=== PATIENT | male | born 1950 | race Caucasian/White ===

== ENCOUNTER 2018-04-13 09:15 | Emergency (ER) | payer BC, OTHER ==
[~2018-04-13] VITALS: Ht 170.2 cm; Wt 103.0 kg
[~2018-04-13 09:15] MED LIST: ATEN50TA41 PO; CHLO25CA9 PO; WARF5TAB PO
[2018-04-13 09:32] VITALS: BP 130/93
--- NOTE | 2018-04-13 09:41 | NUR ---
NOSE RUNNING, FEELS TIRED AND WEAK. PT HAS HAD SYMPTOMS FOR A MONTH
== END 2018-04-13 10:39 | disposition home or self-care (01) ==
LOC: ED 10:11
DX: J01.10 Acute frontal sinusitis, unspecified (principal); J01.00 Acute maxillary sinusitis, unspecified; I10 Essential (primary) hypertension; Z86.718 Personal history of other venous thrombosis and embolism
CPT/HCPCS: 99283